=== PATIENT | male | born 1950 | race Caucasian/White ===

== ENCOUNTER → 2019-07-13 08:21 | Outpatient (CLI) | payer OTHER, SELFPAY ==
--- NOTE | 2019-07-13 | DI.US.S_ITS ---
PROCEDURE: US RETRO PERITONEAL LIMITED INDICATIONS: TOBACCO USE. Abdominal aortic aneurysm screen. TECHNIQUE: Real time scanning was performed of the aorta and iliac arteries, with image documentation. COMPARISON: [facility], ABD AORTA ANEURYSM SCREENING, 11/07/2014, 9:34. FINDINGS: Aorta: The imaged proximal abdominal aorta measures 2.3 cm in anteroposterior diameter. The imaged mid abdominal aorta measures 1.9 cm in anteroposterior diameter and 2.4 cm in transverse diameter. The imaged distal abdominal aorta measures 1.8 cm in anteroposterior diameter. Iliac arteries: Imaged proximal right common iliac artery measures 1.0 cm in anteroposterior diameter. Imaged proximal left common iliac artery measures 1.0 cm in anteroposterior diameter. IMPRESSION: No ultrasound evidence of abdominal aortic aneurysm or aneurysm of the imaged proximal common iliac arteries. Consider followup ultrasound in 5 years to demonstrate stability (with closer followup if clinically indicated). Dictated by: Kenney Fernandes M.D. on 07/13/2019 at 12:43 Approved by: Kenney Fernandes M.D. on 07/13/2019 at 12:49
== END ==
PROVIDERS: PCP Family Medicine; Visit Provider Nurse Practitioner
DX: Z13.6 Encounter for screening for cardiovascular disorders (principal); Z72.0 Tobacco use
CPT/HCPCS: 76706; 76775

== ENCOUNTER → 2021-07-02 06:35 | Outpatient (CLI) | payer OTHER, SELFPAY ==
--- NOTE | 2021-07-02 | DI.CT.S_ITS ---
PROCEDURE: CT LUNG LOW DOSE SCREENING INDICATIONS: Tobacco use TECHNIQUE: Noncontrast 2.0-2.5 mm thick sections acquired from the pulmonary apices to the posterior costophrenic angles. 7 mm thick axial MIP, and 5 mm coronal and sagittal reformats were then acquired. A low radiation dose technique was utilized. COMPARISON: [facility], [facility], 07/13/2019, 8:53. FINDINGS: Image quality: Diagnostic, given the low radiation dose technique. Lungs and pleura: There are small lung nodules. Drug Purchaser nodules are listed in the following: Nodule 1: 3 mm; left upper lobe, lateral; series 3, image 47. Nodule 2: 2 mm; right upper lobe, lateral; series 3, image 90. Biapical scars. Moderate emphysema. Mild bronchiectasis in right middle lobe. Mediastinum: Heart size is normal. Moderate coronary artery calcification. No pericardial effusion. No mediastinal adenopathy by size criteria. Thoracic aorta and central pulmonary arteries are normal in size. Esophagus is normal in caliber. Small hiatal hernia. Bones and chest wall: No suspicious bony lesions. Mild compression fracture of T11 involving the superior endplate. vertebral body compression fractures. No axillary or supraclavicular adenopathy by size criteria. Thyroid gland is unremarkable. Abdomen: There is a large cyst in the liver involving the posterior segment of the right hepatic lobe measuring 10.9 x 10.8 cm, partially visualized. Numerous small low-density nodules are present in liver, also likely cysts. IMPRESSION: 1. Small lung nodules are present, most likely benign. LUNG-RADS 2; recommend screening chest CT in 12 months. 2. Moderate emphysema. 3. Moderate coronary artery calcification. 4. A large hepatic cyst. There are numerous low-density nodules in liver, too small to further characterize but most likely cysts. If clinically indicated, ultrasound may be obtained for follow-up. 5. Mild T11 compression fracture. Dictated by: Kortney Womack M.D. on 07/02/2021 at 8:55 Approved by: Kortney Womack M.D. on 07/02/2021 at 9:03
== END ==
PROVIDERS: Referring Provider Nurse Practitioner; Visit Provider Nurse Practitioner
DX: Z12.2 Encounter for screening for malignant neoplasm of respiratory organs (principal); R91.8 Other nonspecific abnormal finding of lung field; J43.9 Emphysema, unspecified; I25.10 Atherosclerotic heart disease of native coronary artery without angina pectoris; M48.54XA Collapsed vertebra, not elsewhere classified, thoracic region, initial encounter for fracture; K76.89 Other specified diseases of liver; Z72.0 Tobacco use
CPT/HCPCS: 71250

== ENCOUNTER → 2022-01-01 11:32 | Outpatient (CLI) | payer OTHER, SELFPAY ==
[2022-01-02 02:11] LABS: BUN Creatinine Ratio 6.2 (6-22); Blood Urea Nitrogen 6 mg/dL (9-20); Estimated Glomerular Filt Rate > 60 mL/min (>60)
== END ==
PROVIDERS: PCP Nurse Practitioner; Referring Provider Nurse Practitioner; Visit Provider Surgery Surgical Oncology
DX: R31.9 Hematuria, unspecified (principal)
CPT/HCPCS: 36415; 82565; 84520

== ENCOUNTER → 2022-01-05 09:58 | Outpatient (CLI) | payer OTHER, SELFPAY ==
--- NOTE | 2022-01-05 | DI.CT.S_ITS ---
PROCEDURE: CT ABDOMEN PELVIS W CON INDICATIONS: COLOVESICULAR FISTULA VS POLYPLOID BLADDER MASS TECHNIQUE: After the administration of oral and intravenous contrast, axial sections were acquired from the lung bases to the pubic symphysis. Coronal and sagittal reformats were performed. For radiation dose reduction, the following was used: automated exposure control, adjustment of mA and/or kV according to patient size. COMPARISON:Outside Facility, [place], CT IVP, 10/27/2021, 10:28. FINDINGS: Image quality: Excellent. Lung bases: Unremarkable. Heart: No significant findings. ABDOMEN: Liver: Innumerable low-density circumscribed lesions are visualized throughout the liver suggesting the presence of multiple cysts or biliary hamartomas. A septated 12 cm cyst is redemonstrated within the right lobe. Gallbladder: Unremarkable. Biliary ducts: Unremarkable. Pancreas: Unremarkable. Spleen: Unremarkable. Adrenal Glands: Unremarkable. Kidneys and Ureters: Unremarkable. Stomach and Bowel: The stomach is contrast and gas filled. The small bowel demonstrates normal caliber and wall thickness throughout. The appendix is thin walled and contrast and gas filled. The ascending, transverse, and descending colon demonstrate normal caliber and wall thickness. There are extensive sigmoid colon diverticular outpouchings. Circumferential mucosal thickening and moderate pericolonic fat stranding is present within the mid sigmoid colon. Overall findings have a similar appearance to the study dated October 27, 2021. No pericolonic fluid collections. Trace gas is visualized within the wall of the distal sigmoid colon and appears to extend towards the thickened wall of the mid sigmoid colon raising the suspicion for a colonic colonic fistula (series 2/image 62). Peritoneum: No abnormal intraperitoneal fluid. No free air. Ventral Wall: No hernia. Abdominal Nodes: No retroperitoneal or mesenteric adenopathy by size criteria. Vessels: Aorta and inferior vena cava are normal in size. There are scattered atheromatous calcifications throughout the aorta and iliac arteries bilaterally. PELVIS: Pelvic Organs: Unremarkable. Bladder: Gas is redemonstrated within the nondependent bladder. Focal wall thickening is present along the dome of the bladder. The expected fat plane between the sigmoid colon and the bladder is not visualized at midline raising the suspicion for a colovesicular fistula (series 5/image 45). Pelvic Nodes: No enlarged lymph nodes. Miscellaneous: No inguinal hernias are seen. Bones: Unremarkable. IMPRESSION: 1. Sigmoid colon diverticulosis and marked circumferential wall thickening and pericolonic fat stranding suggesting diverticulitis. 2. Findings suspicious for both a colonic colonic fistula within the sigmoid colon and a colovesicular fistula as above. Although these findings may be associated with inflammatory changes of the sigmoid colon in the setting of diverticulitis, colonic neoplasm with invasion into the bladder and adjacent distal colon should be considered on the differential as well. Direct visualization could be used to evaluate for colonic neoplasm. Dictated by: Ana Beebe M.D. on 01/11/2022 at 10:08 Approved by: Ana Beebe M.D. on 01/11/2022 at 10:19
== END ==
PROVIDERS: PCP Nurse Practitioner
DX: K57.30 Diverticulosis of large intestine without perforation or abscess without bleeding (principal); R31.9 Hematuria, unspecified; K76.89 Other specified diseases of liver
CPT/HCPCS: 74177

== ENCOUNTER → 2022-05-31 13:53 | Outpatient (CLI) | payer MEDICARE, MEDICAID, SELFPAY | PROVIDERS: PCP Internal Medicine; Referring Provider Internal Medicine; Visit Provider Family Medicine | DX: K94.00 Colostomy complication, unspecified (principal); Z87.891 Personal history of nicotine dependence; Z85.21 Personal history of malignant neoplasm of larynx | CPT/HCPCS: 99203; 99212 ==

== ENCOUNTER 2022-09-04 22:10 | Emergency (ER) | payer OTHER, SELFPAY ==
[2022-09-04 22:20] VITALS: BP 141/97; PULSE 107; RESP 20; TEMP 37.1; O2SAT 96; BMI 27.1
--- NOTE | 2022-09-04 22:30 | PC.NURSE ---
catheter intact with dark clear urine noted in bag, pt states he has been having some leakage around the catheter, urine specimen obtained by disconnecting the catheter and applying minimal pressure on the bladder with only a small amt returned bladder scan showed only 48 ml, pt states he stopped drinking fluids earlier today when he started feeling full so he wouldn't become uncomfortable. pt has incisions to the abd that are open to air intact without any drainage from surgery on Tuesday, colostomy intact and draining stool. approximately 200 ml noted in rodriguez bag
[2022-09-04 23:30] VITALS: BP 159/99; PULSE 106; RESP 18; O2SAT 96
[2022-09-05 00:05] LABS: Add Manual Diff / Slide Review NO; Basophils Absolute Auto 0 /uL (0-100); Basophils Percent Auto 0.3 % (0-2); Eosinophils Absolute Auto 0 /uL (0-450); Eosinophils Percent Auto 0.4 % (2-4); Hematocrit 35.1 % (41-53); Lymphocytes Absolute Auto 2300 /uL (1100-4500); Lymphocytes Percent Auto 24.3 % (25-40); Mean Corpuscular HGB Conc 34.2 % (30-36); Mean Corpuscular Hemoglobin 31.6 PG (26-34); Mean Corpuscular Volume 92.2 fL (80-100); Monocytes Absolute Auto 800 /uL (0-900); Monocytes Percent Auto 8.6 % (3-14); Neutrophils Absolute Auto 6300 /uL (1500-7000); Neutrophils Percent Auto 66.4 % (50-75); Platelet Count 312 X10^3/uL (150-400); Red Blood Cell Count 3.81 X10^6/uL (4.5-5.9); Red Cell Distribution Width 15.9 % (11.6-14.8); White Blood Cell Count 9.5 X10^3/uL (4.5-11.0)
[2022-09-05 00:10] LABS: Alanine Aminotransferase 21 IU/L (<50); Albumin 3.6 g/dL (3.5-5.0); Albumin Globulin Ratio 1.1 (1.0-2.8); Alkaline Phosphatase 55 U/L (38-126); Aspartate Aminotransferase 23 IU/L (17-59); BUN Creatinine Ratio 25.3 (6-22); Bilirubin Total 0.4 mg/dL (0.2-1.3); Blood Urea Nitrogen 25 mg/dL (9-20); Carbon Dioxide 30 mmol/L (22-32); Chloride 98 mmol/L (98-107); Estimated Glomerular Filt Rate > 60 mL/min (>60); Globulin 3.3 g/dL (1.7-4.1); Glucose 113 mg/dL (80-110); HEMOLYSIS < 15 (0-50); Lipase 40 U/L (23-300); Potassium 4.3 mmol/L (3.4-5.1); Sodium 135 mmol/L (137-145); Total Protein 6.9 g/dL (6.3-8.2)
[2022-09-05 00:16] LABS: Bacteria Urine None Seen; Culture Indicated Urine Cult Not Indicated; RBC Urine 30-100/HPF (0-5/HPF); WBC Urine 1-5/HPF (0-5/HPF)
[2022-09-05 00:30] VITALS: BP 143/101; PULSE 105; RESP 18; O2SAT 97
[2022-09-05 01:30] VITALS: BP 139/89; PULSE 103; RESP 18; O2SAT 97
--- NOTE | 2022-09-05 01:51 | ED.MALEGU ---
HPI - Male Genitourinary General Chief complaint: Urogenital-Male Stated complaint: catheter isnt working/surgery 08/30 Time Seen by Provider: 09/04/22 22:58 Source: patient and RN notes reviewed Mode of arrival: Wheelchair Limitations: no limitations History of Present Illness HPI Narrative: This is a 72-year-old male with recent colonic vesicular fistula repair. Patient states he was discharged home today, he states there was always a little bit of urine drainage around the catheter but on the drive home he started having suprapubic pressure and states that it seem like all of the urine was draining around. Patient states did not see a lot of urine output. He denies fevers or chills. He denies other symptoms like chest pain, shortness of breath nausea or vomiting. He states his colostomy which is new has been out putting. He states he is supposed to follow up on to have injected to make sure his bladder is healing properly and then potentially have reanastomosis of his ostomy and several months. Patient treatment was at the [place]. Related Data Previous Rx's Medication Instructions Recorded sulfamethoxazole 800 1 tab PO BID 7 days #14 tabs 09/05/22 mg-trimethoprim 160 mg tablet (Bactrim DS) Allergies Allergy/AdvReac Type Severity Reaction Status Date / Time PENICILLIN Allergy Mild Uncoded 03/12/22 10:23 Review of Systems Review of Systems ROS Unobtainable: All systems reviewed & are unremarkable except as noted in HPI and below Patient History Medical History Basal cell carcinoma (BCC) of skin of face (10/20/16) Benign prostatic hyperplasia with urinary obstruction (10/20/16) Colonic fistula (~09/2021) Do not resuscitate status (11/04/14) Former smoker Hearing loss History of adenomatous polyp of colon Hyperlipidemia (11/04/14) 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 HEENT: Head normocephalic, atraumatic, EOMI, pupils reactive, face symmetric, moist mucous membranes NECK: Supple, full range of motion CARDIOVASCULAR: Regular rate and rhythm without murmurs, rubs or gallops. RESPIRATORY: Breath sounds equal bilaterally, no wheezes rales or rhonchi. ABDOMEN: Soft, nontender. Normoactive bowel sounds all 4 quadrants. No guarding or rebound, rigidity, no mass, patient has colostomy with what appears to be a new ostomy site on the left tissue appears pink, no erythema, draining brownish stool with no bright red blood or black. : No CVA tenderness. Male: normal external examination, no penile discharge or lesions, testicles non-tender, cremasteric reflex intact, no inguinal hernias noted. Patient has Vasques catheter that appears to be draining yellow urine, there is active drainage throughout the tube. No blood or clots. There is no drainage from around the catheter at the urethral opening currently. Skin is dry as well as a towel that patient states has been present since his arrival to the ED. EXTREMITIES: Normal range of motion, no clubbing or edema. Neurovascularly intact NEUROLOGICAL: Cranial nerves II through XII grossly intact. Moving all extremities SKIN: Warm, dry, no petechiae, no rashes or lesions. Initial Vital Signs Initial Vital Signs: Vital Signs Temperature 98.7 F 09/04/22 22:20 Pulse Rate 107 H 09/04/22 22:20 Respiratory Rate 20 09/04/22 22:20 Blood Pressure 141/97 H 09/04/22 22:20 Pulse Oximetry 96 09/04/22 22:20 Oxygen Delivery Method 09/04/22 22:20 Course Orders Ordered: ED Orders 09/04/22 23:30 Urine Microscopic Stat 09/04/22 23:50 CBC Auto Diff [Complete Blood Count AUTO DIFF] Stat CMP [Comprehensive Metabolic Panel] Stat Lipase Stat Vital Signs Vital signs: Vital Signs - 8 hr 09/04/22 22:20 09/04/22 23:30 09/05/22 00:30 Temperature 98.7 F Pulse Rate 107 H 106 H 105 H Respiratory Rate 20 18 18 Blood Pressure 141/97 H 159/99 H 143/101 H Pulse Oximetry 96 96 97 Oxygen Delivery Method Room Air Room Air 09/05/22 01:30 09/05/22 02:16 Temperature Pulse Rate 103 H 102 H Respiratory Rate 18 18 Blood Pressure 139/89 162/85 H Pulse Oximetry 97 98 Oxygen Delivery Method MDM - Male Genitourinary Lab Data 09/04/22 23:50 09/04/22 23:50 Labs: Lab Results 09/04/22 09/04/22 09/04/22 Range/Units 23:30 23:50 23:50 WBC 9.5 (4.5-11.0) X10^3/uL RBC 3.81 L (4.5-5.9) X10^6/uL Hgb 12.0 L (13.5-17.5) g/dL Hct 35.1 L (41-53) % MCV 92.2 (80-100) fL MCH 31.6 (26-34) PG MCHC 34.2 (30-36) % RDW 15.9 H (11.6-14.8) % Plt Count 312 (150-400) X10^3/uL Neut % (Auto) 66.4 (50-75) % Lymph % (Auto) 24.3 L (25-40) % Blount % (Auto) 8.6 (3-14) % Eos % (Auto) 0.4 L (2-4) % Baso % (Auto) 0.3 (0-2) % Neut # (Auto) 6300 (7936-0653) /uL Lymph # (Auto) 2300 (0857-7944) /uL Blount # (Auto) 800 (0-900) /uL Eos # (Auto) 0 (0-450) /uL Baso # (Auto) 0 (0-100) /uL Sodium 135 L (137-145) mmol/L Potassium 4.3 (3.4-5.1) mmol/L Chloride 98 (98-107) mmol/L Carbon Dioxide 30 (22-32) mmol/L BUN 25 H (9-20) mg/dL Creatinine 0.99 (0.66-1.25) mg/dL Estimated GFR > 60 (>60) mL/min BUN/Creatinine Ratio 25.3 H (6-22) Glucose 113 H (80-110) mg/dL Calcium 9.0 (8.4-10.2) mg/dL Total Bilirubin 0.4 (0.2-1.3) mg/dL AST 23 (17-59) IU/L ALT 21 (<50) IU/L Alkaline Phosphatase 55 (38-126) U/L Total Protein 6.9 (6.3-8.2) g/dL Albumin 3.6 (3.5-5.0) g/dL Globulin 3.3 (1.7-4.1) g/dL Albumin/Globulin Ratio 1.1 (1.0-2.8) Lipase 40 (23-300) U/L Urine RBC 30-100/hpf H (0-5/HPF) Urine WBC 1-5/hpf (0-5/HPF) Urine Bacteria None seen (None) Ur Culture Indicated? Cult not indicated MDM Narrative Medical decision making narrative: 72-year-old male with recent colonic vesicular fistula repair. Patient states he was having some issues in the hospital he has been there a week with a small amount of urine draining around the catheter at the urethra but on the drive home was having a lot of drainage and increasing suprapubic tenderness. Patient did have a sample obtained and he states since then suprapubic pain has resolved. He appears to be draining urine well with yellow urine and he is not having any additional drainage around the catheter at the urethra. I was able to look with bedside ultrasound I am able to see the balloon bladder appears decompressed by myself and had bladder scan performed by nursing which showed 31-50 mL. Urine sample shows 30-100 RBCs this makes sense with his recent surgery. Patient stood up had drainage again. Vasques catheter was replaced his large catheter. Still draining urine patient was able to stand and walk without additional drainage. Patient was noted to have some phle[facility] was [facility]. Patient was given a prescription for antibiotics can do warm compresses for 24 hours but if not improving or spreading he should start antibiotics. Discharge Plan Departure Patient Disposition: Home Clinical Impression: Malfunction of Vasques catheter Instructions: How to Care for Your Vasques Catheter -- Male Activity Restrictions/Additional Instructions: Your catheter appears to be draining appropriately now and I am able to visualize the balloon in the bladder. I hope you continue to heal well. Please return for new or worsening symptoms if your catheter is not draining any urine, if you are having new abdominal pain or pressure, if you are having large bloody clots, if the urine is coming up around the catheter but not through it, fevers or other new or concerning changes. Prescriptions: New sulfamethoxazole-trimethoprim [Bactrim DS] 800-160 mg tablet 1 tab PO BID 7 Days Qty: 14 0RF Referrals: Phillip Lewis MD [Primary Care Provider] - Stand Alone Forms: Patient Portal/API
[2022-09-05 02:16] VITALS: BP 162/85; PULSE 102; RESP 18; O2SAT 98
== END 2022-09-05 03:23 | disposition home or self-care (01) ==
PROVIDERS: Emergency Provider Emergency Medicine; PCP Internal Medicine
DX: T83.011A Breakdown (mechanical) of indwelling urethral catheter, initial encounter (principal)
CPT/HCPCS: 36415; 51798; 80053; 81015; 83690; 85025; 99283; 99284

== ENCOUNTER → 2023-04-21 08:43 | Outpatient (CLI) | payer OTHER, SELFPAY ==
--- NOTE | 2023-04-21 | DI.CT.S_ITS ---
PROCEDURE: CT LUNG LOW DOSE SCREENING INDICATIONS: solitary pulmonary nodule - ex smoker TECHNIQUE: Noncontrast 2.0-2.5 mm thick sections acquired from the pulmonary apices to the posterior costophrenic angles. 7 mm thick axial MIP, and 5 mm coronal and sagittal reformats were then acquired. A low radiation dose technique was utilized. COMPARISON: [facility], CT, CT ABDOMEN PELVIS W CON, 01/05/2022, 11:08. [facility], CT, CT LUNG LOW DOSE SCREENING, 07/02/2021, 7:07. FINDINGS: Image quality: Diagnostic, given the low radiation dose technique. Lungs and pleura: Moderate emphysematous change. A few small pulmonary nodules measuring 0.4 cm or less are unchanged. Right apical pleural scarring is unchanged. There are a few distal mucus airway plugs. No significant bronchiectasis. Central airways are clear. Mediastinum: Heart size is normal. Moderate three-vessel coronary artery calcifications. No pericardial effusion. No mediastinal adenopathy by size criteria. Thoracic aorta and central pulmonary arteries are normal in size. Esophagus is normal in caliber. No hiatal hernia. Bones and chest wall: No suspicious bony lesions. No vertebral body compression fractures. No axillary or supraclavicular adenopathy by size criteria. Thyroid gland is unremarkable. Abdomen: Large benign cyst in the right liver measuring 11.7 cm, (2/68). Multiple other hypodense foci throughout the liver are also all similar and consistent with benign cysts, better seen on prior contrast enhanced CT. IMPRESSION: 1. No significant pulmonary nodules. LUNG-RADS 2; recommend follow-up lung cancer screening chest CT in 12 months. 2. Moderate to severe coronary artery calcifications. Dictated by: Ramesh Moseley M.D. on 04/21/2023 at 11:11 Approved by: Ramesh Moseley M.D. on 04/21/2023 at 11:18
== END ==
PROVIDERS: PCP Internal Medicine; Referring Provider Nurse Practitioner; Visit Provider Nurse Practitioner
DX: R91.1 Solitary pulmonary nodule (principal); Z87.891 Personal history of nicotine dependence; I25.10 Atherosclerotic heart disease of native coronary artery without angina pectoris
CPT/HCPCS: 71271

== ENCOUNTER → 2023-11-02 07:34 | Outpatient (CLI) | payer MEDICARE, MEDICAID, SELFPAY ==
[2023-11-02 08:07] LABS: Estimated Glomerular Filt Rate 14 mL/min (>60)
[2023-11-02 08:15] LABS: Add Manual Diff / Slide Review NO; Basophils Absolute Auto 100 /uL (0-100); Basophils Percent Auto 1.2 % (0-2); Eosinophils Absolute Auto 100 /uL (0-450); Eosinophils Percent Auto 1.7 % (2-4); Hematocrit 39.2 % (41-53); Hemoglobin 13.8 g/dL (13.5-17.5); Lymphocytes Absolute Auto 1800 /uL (1100-4500); Lymphocytes Percent Auto 34.5 % (25-40); Mean Corpuscular HGB Conc 35.4 % (30-36); Mean Corpuscular Volume 93.3 fL (80-100); Monocytes Absolute Auto 600 /uL (0-900); Monocytes Percent Auto 10.6 % (3-14); Neutrophils Absolute Auto 2700 /uL (1500-7000); Platelet Count 343 X10^3/uL (150-400); Red Cell Distribution Width 15.1 % (11.6-14.8); White Blood Cell Count 5.2 X10^3/uL (4.5-11.0)
[2023-11-02 08:39] LABS: Alanine Aminotransferase 40 IU/L (<50); Albumin 4.9 g/dL (3.5-5.0); Albumin Globulin Ratio 1.5 (1.0-2.8); Alkaline Phosphatase 65 U/L (38-126); Aspartate Aminotransferase 33 IU/L (17-59); Blood Urea Nitrogen 62 mg/dL (9-20); Calcium 10.6 mg/dL (8.4-10.2); Carbon Dioxide 28 mmol/L (22-32); Chloride 92 mmol/L (98-107); Cholesterol 166 mg/dL (140-199); Estimated Glomerular Filt Rate 14 mL/min (>60); Globulin 3.2 g/dL (1.7-4.1); Glucose 114 mg/dL (80-110); HDL Cholesterol 47 mg/dL (40-60); HEMOLYSIS < 15 (0-50); LDL Cholesterol Calculated 88 mg/dL (<100); Potassium 3.8 mmol/L (3.4-5.1); Sodium 131 mmol/L (137-145); Total Protein 8.1 g/dL (6.3-8.2); Triglycerides 153 mg/dL (35-150)
--- NOTE | 2023-11-02 08:40 | DI.CT.S_ITS ---
PROCEDURE: CT ABDOMEN PELVIS WO CON INDICATIONS: Colostomy status TECHNIQUE: Axial sections were acquired from the lung bases to the pubic symphysis. Coronal and sagittal reformats were performed. For radiation dose reduction, the following was used: automated exposure control, adjustment of mA and/or kV according to patient size. COMPARISON: [facility], CT, CT ABDOMEN PELVIS W CON, 01/05/2022, 11:08. FINDINGS: Image quality: Diagnostic. Evaluation of the visceral organs is limited due to the lack of intravenous contrast. Lower Chest: No significant findings. Partially visualized right coronary vessel calcifications. URINARY: Right Kidney: No stones or hydronephrosis. Right Ureter: No hydroureter. Left Kidney: No stones or hydronephrosis. Left Ureter: No hydroureter. Bladder: Mild circumferential wall thickening, accounting for underdistention. No stones. ABDOMEN: Liver: No contour-deforming solid mass. Large cyst occupying most of the right hepatic lobe measuring approximately 13.9 x 11.2 x 14.3 cm (08/28, 11/13). Additional scattered subcentimeter hypodensities are too small to characterize and stable. Gallbladder: No radiopaque gallstones or wall thickening. Biliary ducts: No biliary dilation. Pancreas: No ductal dilation. Spleen: Size is within normal limits. Adrenal Glands: No adrenal nodules. Stomach and Bowel: Stomach is decompressed, limiting evaluation, but appears grossly normal. Small and large bowel is normal in caliber, without obstruction. Compared to CT dated January 05, 2022, interval colectomy. Oral contrast extends to the colostomy in the right lower quadrant. No evidence of obstructed bowel or strangulation within the colostomy. Surgical anastomosis in the rectum is intact. Peritoneum: No abnormal intraperitoneal fluid. No free air. Ventral Wall: No hernia. Abdominal Nodes: No enlarged retroperitoneal or mesenteric lymph nodes. Vessels: Aorta and inferior vena cava are normal in size. Moderate to marked atherosclerotic calcification of the abdominal aorta and iliac vessels. PELVIS: Pelvic Organs: Marked prostatomegaly. Pelvic Nodes: Unremarkable. Miscellaneous: No inguinal hernias are seen. Bones: No acute fractures. No aggressive appearing lytic or blastic osseous lesions. Mild degenerative changes at L5-S1. IMPRESSION: Evaluation of the visceral organs is limited due to the lack of intravenous contrast. 1. Compared to CT dated January 05, 2022, interval colectomy. Oral contrast extends to the colostomy in the right lower quadrant. No evidence of obstructed bowel or strangulation within the colostomy. 2. No obstructing stones or hydronephrosis. 3. Marked prostatomegaly. Circumferential bladder wall thickening which may be secondary to under distension/chronic bladder outlet obstruction. 4. Stable large cyst occupying most of the right hepatic lobe measuring 13.9 x 11.2 x 14.3 cm. Dictated by: Alice Ellington M.D. on 11/02/2023 at 13:57 Approved by: Alice Ellington M.D. on 11/02/2023 at 14:21
[2023-11-02 09:11] LABS: TSH w/ Reflex to FT4 1.34 uIU/mL (0.47-4.68)
== END ==
LOC: CT 07:35
PROVIDERS: Radiology Diagnostic Radiology; PCP Internal Medicine; Referring Provider Surgery Surgical Oncology; Visit Provider Surgery Surgical Oncology
DX: K76.89 Other specified diseases of liver (principal); N40.0 Benign prostatic hyperplasia without lower urinary tract symptoms; I25.10 Atherosclerotic heart disease of native coronary artery without angina pectoris; I25.84 Coronary atherosclerosis due to calcified coronary lesion; Z93.3 Colostomy status; Z93.2 Ileostomy status; Z86.010 Personal history of colon polyps
CPT/HCPCS: 36415; 74176; 74177; 80053; 80061; 82565; 84443; 85025; Q9967

== ENCOUNTER → 2023-11-22 15:48 | Outpatient (CLI) | payer MEDICARE, MEDICAID, SELFPAY ==
[2023-11-22 17:29] LABS: BUN Creatinine Ratio 11.4 (6-22); Blood Urea Nitrogen 35 mg/dL (9-20); Calcium 9.7 mg/dL (8.4-10.2); Carbon Dioxide 29 mmol/L (22-32); Chloride 99 mmol/L (98-107); Estimated Glomerular Filt Rate 21 mL/min (>60); Glucose 105 mg/dL (80-110); HEMOLYSIS < 15 (0-50); Potassium 3.4 mmol/L (3.4-5.1); Sodium 133 mmol/L (137-145)
== END ==
PROVIDERS: PCP Internal Medicine; Referring Provider Internal Medicine; Visit Provider Internal Medicine
DX: N17.9 Acute kidney failure, unspecified (principal)
CPT/HCPCS: 36415; 80048

== ENCOUNTER → 2023-12-15 07:00 | Outpatient (CLI) | payer MEDICARE, MEDICAID, SELFPAY ==
[2023-12-15 08:24] LABS: Albumin 4.9 g/dL (3.5-5.0); BUN Creatinine Ratio 13.5 (6-22); Blood Urea Nitrogen 45 mg/dL (9-20); Calcium 9.8 mg/dL (8.4-10.2); Carbon Dioxide 21 mmol/L (22-32); Chloride 101 mmol/L (98-107); Cholesterol 130 mg/dL (140-199); Estimated Glomerular Filt Rate 19 mL/min (>60); Glucose 107 mg/dL (80-110); HDL Cholesterol 76 mg/dL (40-60); HEMOLYSIS < 15 (0-50); LDL Cholesterol Calculated 37 mg/dL (<100); Phosphorous 4.4 mg/dL (2.3-3.7); Potassium 4.1 mmol/L (3.4-5.1); Sodium 135 mmol/L (137-145); Triglycerides 83 mg/dL (35-150)
== END ==
PROVIDERS: PCP Internal Medicine; Referring Provider Internal Medicine; Visit Provider Internal Medicine
DX: I95.9 Hypotension, unspecified (principal)
CPT/HCPCS: 36415; 80061; 80069

== ENCOUNTER → 2023-12-27 06:55 | Outpatient (CLI) | payer MEDICARE, MEDICAID, SELFPAY ==
[2023-12-27 09:25] LABS: Albumin 4.1 g/dL (3.5-5.0); BUN Creatinine Ratio 11.4 (6-22); Blood Urea Nitrogen 28 mg/dL (9-20); Calcium 9.1 mg/dL (8.4-10.2); Carbon Dioxide 19 mmol/L (22-32); Chloride 110 mmol/L (98-107); Cholesterol 113 mg/dL (140-199); Estimated Glomerular Filt Rate 27 mL/min (>60); Glucose 100 mg/dL (80-110); HDL Cholesterol 50 mg/dL (40-60); HEMOLYSIS < 15 (0-50); LDL Cholesterol Calculated 34 mg/dL (<100); Phosphorous 2.5 mg/dL (2.3-3.7); Potassium 4.4 mmol/L (3.4-5.1); Sodium 138 mmol/L (137-145); Triglycerides 145 mg/dL (35-150)
== END ==
LOC: LAB 06:57
PROVIDERS: PCP Internal Medicine; Referring Provider Internal Medicine; Visit Provider Internal Medicine
DX: I95.9 Hypotension, unspecified (principal)
CPT/HCPCS: 36415; 80061; 80069

== ENCOUNTER → 2024-01-23 14:14 | Outpatient (CLI) | payer MEDICARE, MEDICAID, SELFPAY ==
[2024-01-23 16:19] LABS: BUN Creatinine Ratio 11.9 (6-22); Blood Urea Nitrogen 56 mg/dL (9-20); Calcium 9.2 mg/dL (8.4-10.2); Carbon Dioxide 21 mmol/L (22-32); Chloride 99 mmol/L (98-107); Estimated Glomerular Filt Rate 12 mL/min (>60); Glucose 99 mg/dL (80-110); HEMOLYSIS < 15 (0-50); Potassium 3.6 mmol/L (3.4-5.1); Sodium 131 mmol/L (137-145)
== END ==
PROVIDERS: PCP Internal Medicine; Referring Provider Internal Medicine; Visit Provider Internal Medicine
DX: N18.32 Chronic kidney disease, stage 3b (principal)
CPT/HCPCS: 36415; 80048

== ENCOUNTER → 2024-01-30 10:43 | Outpatient (CLI) | payer MEDICARE, MEDICAID, SELFPAY ==
[2024-01-30 14:46] LABS: BUN Creatinine Ratio 11.6 (6-22); Blood Urea Nitrogen 31 mg/dL (9-20); Calcium 9.6 mg/dL (8.4-10.2); Carbon Dioxide 21 mmol/L (22-32); Chloride 102 mmol/L (98-107); Estimated Glomerular Filt Rate 24 mL/min (>60); Glucose 108 mg/dL (80-110); HEMOLYSIS < 15 (0-50); Potassium 3.8 mmol/L (3.4-5.1); Sodium 134 mmol/L (137-145)
== END ==
LOC: LAB 10:44
PROVIDERS: PCP Internal Medicine; Referring Provider Internal Medicine; Visit Provider Internal Medicine
DX: N18.32 Chronic kidney disease, stage 3b (principal)
CPT/HCPCS: 36415; 80048

== ENCOUNTER → 2024-02-06 10:12 | Outpatient (CLI) | payer MEDICARE, MEDICAID, SELFPAY ==
[2024-02-06 12:33] LABS: Carbon Dioxide 17 mmol/L (22-32); Chloride 104 mmol/L (98-107); Glucose 91 mg/dL (80-110); HEMOLYSIS < 15 (0-50); Potassium 3.7 mmol/L (3.4-5.1); Sodium 133 mmol/L (137-145)
[2024-02-06 12:38] LABS: BUN Creatinine Ratio 11.4 (6-22); Blood Urea Nitrogen 31 mg/dL (9-20); Estimated Glomerular Filt Rate 24 mL/min (>60)
== END ==
PROVIDERS: PCP Internal Medicine; Referring Provider Internal Medicine; Visit Provider Internal Medicine
DX: N18.32 Chronic kidney disease, stage 3b (principal)
CPT/HCPCS: 36415; 80048

== ENCOUNTER → 2024-02-13 10:36 | Outpatient (CLI) | payer MEDICARE, MEDICAID, SELFPAY ==
[2024-02-13 12:21] LABS: BUN Creatinine Ratio 11.5 (6-22); Blood Urea Nitrogen 29 mg/dL (9-20); Calcium 9.6 mg/dL (8.4-10.2); Carbon Dioxide 18 mmol/L (22-32); Chloride 102 mmol/L (98-107); Estimated Glomerular Filt Rate 26 mL/min (>60); Glucose 71 mg/dL (80-110); HEMOLYSIS < 15 (0-50); Potassium 3.9 mmol/L (3.4-5.1); Sodium 131 mmol/L (137-145)
== END ==
PROVIDERS: PCP Internal Medicine; Referring Provider Internal Medicine; Visit Provider Internal Medicine
DX: N18.32 Chronic kidney disease, stage 3b (principal)
CPT/HCPCS: 36415; 80048

== ENCOUNTER → 2024-02-20 12:32 | Outpatient (CLI) | payer MEDICARE, MEDICAID, SELFPAY ==
[2024-02-20 18:11] LABS: BUN Creatinine Ratio 12.8 (6-22); Blood Urea Nitrogen 38 mg/dL (9-20); Calcium 9.7 mg/dL (8.4-10.2); Carbon Dioxide 20 mmol/L (22-32); Chloride 103 mmol/L (98-107); Estimated Glomerular Filt Rate 21 mL/min (>60); HEMOLYSIS < 15 (0-50); Potassium 4.3 mmol/L (3.4-5.1); Sodium 135 mmol/L (137-145)
[2024-02-20 18:27] LABS: Glucose 96 mg/dL (80-110)
== END ==
LOC: LAB 12:33
PROVIDERS: PCP Internal Medicine; Referring Provider Internal Medicine; Visit Provider Internal Medicine
DX: N18.32 Chronic kidney disease, stage 3b (principal); K76.89 Other specified diseases of liver
CPT/HCPCS: 36415; 80048

== ENCOUNTER → 2024-02-27 10:20 | Outpatient (CLI) | payer MEDICARE, MEDICAID, SELFPAY ==
[2024-02-27 11:33] LABS: BUN Creatinine Ratio 14.5 (6-22); Blood Urea Nitrogen 36 mg/dL (9-20); Calcium 9.5 mg/dL (8.4-10.2); Carbon Dioxide 18 mmol/L (22-32); Chloride 106 mmol/L (98-107); Estimated Glomerular Filt Rate 26 mL/min (>60); Glucose 109 mg/dL (80-110); HEMOLYSIS < 15 (0-50); Potassium 3.8 mmol/L (3.4-5.1); Sodium 135 mmol/L (137-145)
== END ==
PROVIDERS: PCP Internal Medicine; Referring Provider Internal Medicine; Visit Provider Internal Medicine
DX: N18.32 Chronic kidney disease, stage 3b (principal)
CPT/HCPCS: 36415; 80048

== ENCOUNTER → 2024-03-12 09:41 | Outpatient (CLI) | payer MEDICARE, MEDICAID, SELFPAY ==
[2024-03-12 10:34] LABS: Blood Urea Nitrogen 39 mg/dL (9-20); Calcium 9.8 mg/dL (8.4-10.2); Carbon Dioxide 16 mmol/L (22-32); Chloride 104 mmol/L (98-107); Estimated Glomerular Filt Rate 19 mL/min (>60); Glucose 97 mg/dL (80-110); HEMOLYSIS < 15 (0-50); Potassium 3.4 mmol/L (3.4-5.1); Sodium 133 mmol/L (137-145)
== END ==
LOC: LAB 09:42
PROVIDERS: PCP Internal Medicine; Referring Provider Internal Medicine; Visit Provider Internal Medicine
DX: N18.32 Chronic kidney disease, stage 3b (principal)
CPT/HCPCS: 36415; 80048

== ENCOUNTER → 2024-03-20 07:29 | Outpatient (CLI) | payer MEDICARE, MEDICAID, SELFPAY ==
[2024-03-20 08:49] LABS: BUN Creatinine Ratio 12.6 (6-22); Blood Urea Nitrogen 42 mg/dL (9-20); Calcium 9.9 mg/dL (8.4-10.2); Carbon Dioxide 15 mmol/L (22-32); Chloride 106 mmol/L (98-107); Estimated Glomerular Filt Rate 19 mL/min (>60); Glucose 156 mg/dL (80-110); HEMOLYSIS < 15 (0-50); Sodium 135 mmol/L (137-145)
== END ==
PROVIDERS: PCP Internal Medicine; Referring Provider Internal Medicine; Visit Provider Internal Medicine
DX: N18.32 Chronic kidney disease, stage 3b (principal); N17.9 Acute kidney failure, unspecified
CPT/HCPCS: 36415; 80048

== ENCOUNTER → 2024-08-15 06:48 | Outpatient (CLI) | payer MEDICARE, MEDICAID, SELFPAY ==
[2024-08-15 07:56] LABS: Alanine Aminotransferase 16 IU/L (<50); Albumin 4.4 g/dL (3.5-5.0); Albumin Globulin Ratio 1.5 (1.0-2.8); Alkaline Phosphatase 93 U/L (38-126); Aspartate Aminotransferase 24 IU/L (17-59); BUN Creatinine Ratio 11.1 (6-22); Bilirubin Total 0.4 mg/dL (0.2-1.3); Blood Urea Nitrogen 26 mg/dL (9-20); Calcium 9.7 mg/dL (8.4-10.2); Carbon Dioxide 24 mmol/L (22-32); Chloride 103 mmol/L (98-107); Cholesterol 168 mg/dL (140-199); Estimated Glomerular Filt Rate 28 mL/min (>60); Glucose 105 mg/dL (80-110); HDL Cholesterol 57 mg/dL (40-60); HEMOLYSIS < 15 (0-50); LDL Cholesterol Calculated 98 mg/dL (<100); Potassium 4.1 mmol/L (3.4-5.1); Sodium 134 mmol/L (137-145); Total Protein 7.4 g/dL (6.3-8.2); Triglycerides 66 mg/dL (35-150)
== END ==
PROVIDERS: PCP Internal Medicine; Referring Provider Internal Medicine; Visit Provider Internal Medicine
DX: N18.32 Chronic kidney disease, stage 3b (principal); I73.9 Peripheral vascular disease, unspecified; E78.2 Mixed hyperlipidemia
CPT/HCPCS: 36415; 80053; 80061

== ENCOUNTER → 2024-10-05 13:10 | Outpatient (CLI) | payer OTHER, SELFPAY ==
--- NOTE | 2024-10-05 13:12 | DI.CT.S_ITS ---
PROCEDURE: CT LUNG LOW DOSE SCREENING INDICATIONS: LUNG CANCER SCREENING TECHNIQUE: Noncontrast 2.0-2.5 mm thick sections acquired from the pulmonary apices to the posterior costophrenic angles. 7 mm thick axial MIP, and 5 mm coronal and sagittal reformats were then acquired. For radiation dose reduction, the following was used: automated exposure control, adjustment of mA and/or kV according to patient size. COMPARISON: [facility], CT, CT LUNG LOW DOSE SCREENING, 04/21/2023, 8:54. [facility], CT, CT LUNG LOW DOSE SCREENING, 07/02/2021, 7:07. FINDINGS: Image quality: Diagnostic. Lower Neck: No enlarged lymph nodes. Thyroid: No thyroid nodules which require sonographic follow up, per consensus guidelines. Axillae: No enlarged lymph nodes. Chest Wall: Unremarkable. Bones: Unremarkable. Lungs and Pleura: No pneumothorax or pleural effusions. No consolidation or suspicious nodules. Moderate centrilobular emphysematous change. Heart: Heart size is normal. No pericardial effusion. Thoracic Vessels: The aorta and pulmonary arteries demonstrate normal size. Mediastinum and Anne: No enlarged lymph nodes. Esophagus: No wall thickening. No hiatal hernia. Upper Abdomen: Visualized upper abdomen solid organs and bowel loops appear normal. IMPRESSION: No suspicious pulmonary nodules. LUNG-RADS 1; continued annual screening, if eligible. Clinically Significant Non-pulmonary Findings: Moderate centrilobular emphysematous change.. Dictated by: Felix Enriquez M.D. on 10/05/2024 at 15:38 Approved by: Felix Enriquez M.D. on 10/05/2024 at 15:40
== END ==
PROVIDERS: PCP Internal Medicine; Referring Provider Internal Medicine; Visit Provider Internal Medicine
DX: Z12.2 Encounter for screening for malignant neoplasm of respiratory organs (principal); Z72.0 Tobacco use
CPT/HCPCS: 71271

== ENCOUNTER → 2025-04-25 09:35 | Outpatient (CLI) | payer MEDICARE, MEDICAID, SELFPAY ==
[2025-04-25 10:51] LABS: Blood Urea Nitrogen 25 mg/dL (9-20); Calcium 9.6 mg/dL (8.4-10.2); Carbon Dioxide 22 mmol/L (22-32); Chloride 100 mmol/L (98-107); Estimated Glomerular Filt Rate 30 mL/min (>60); Glucose 100 mg/dL (70-99); HEMOLYSIS < 15 (0-50); Potassium 3.3 mmol/L (3.4-5.1); Sodium 134 mmol/L (137-145)
== END ==
PROVIDERS: PCP Internal Medicine; Referring Provider Internal Medicine; Visit Provider Internal Medicine
DX: N18.32 Chronic kidney disease, stage 3b (principal); E78.2 Mixed hyperlipidemia
CPT/HCPCS: 36415; 80048

== ENCOUNTER → 2025-06-03 06:54 | Outpatient (CLI) | payer MEDICARE, MEDICAID, SELFPAY ==
[2025-06-03 08:11] LABS: Blood Urea Nitrogen 23 mg/dL (9-20); Calcium 10.0 mg/dL (8.4-10.2); Carbon Dioxide 25 mmol/L (22-32); Chloride 103 mmol/L (98-107); Estimated Glomerular Filt Rate 34 mL/min (>60); Glucose 107 mg/dL (70-99); HEMOLYSIS < 15 (0-50); Potassium 4.7 mmol/L (3.4-5.1); Sodium 138 mmol/L (137-145)
== END ==
PROVIDERS: PCP Internal Medicine; Referring Provider Internal Medicine; Visit Provider Internal Medicine
DX: N18.32 Chronic kidney disease, stage 3b (principal)
CPT/HCPCS: 36415; 80048